=== PATIENT | male | born 1950 | race Caucasian/White ===

== ENCOUNTER 2021-11-09 22:03 | Inpatient (IN) ==
[2021-11-09] MEDS ORDERED: Amiodarone Premix 150 MG/100 ML BAG IVPB ONE (22:17)
[2021-11-09] MEDS ORDERED: Amiodarone Premix 360 MG/200 ML BAG IVC ONE (22:21)
[2021-11-09 22:34] LABS: Basophils # 0.1 K/mcL (0.0-0.2); Basophils % 0.7 %; Eosinophils # 0.5 K/mcL (0.0-0.6); Eosinophils % 3.4 %; Hematocrit 52.6 % (37.5-50.1); Hemoglobin 17.6 g/dL (12.9-16.9); Immature Granulocytes % 0.9 % (0-4); Lymphocytes # 2.3 K/mcL (0.6-4.6); Lymphocytes % 16.4 %; Mean Corpuscular HGB Conc 33.5 g/dL (31.6-35.5); Mean Corpuscular Hemoglobin 29.7 pg (28.0-33.3); Mean Corpuscular Volume 88.7 fL (83.0-100.0); Mean Platelet Volume 11.2 fL (9.4-12.4); Monocytes % 6.8 %; Neutrophils # 10.1 K/mcL (1.6-8.9); Platelet Count 210 K/mcL (140-400); Red Blood Count 5.93 M/mcL (4.19-5.50); Red Cell Distribution Width 14.5 % (11.5-14.5); Segmented Neutrophils % 71.8 %; White Blood Count 14.1 K/mcL (4.3-11.1)
[2021-11-09] MEDS ORDERED: *HR* Ticagrelor 90 MG TABLET PO ONE (22:37)
[2021-11-09] MEDS ORDERED: *HR* Heparin 5,000 UNIT/ML VIAL IVP PRN ×2 (22:37)
[2021-11-09] MEDS ORDERED: *HR* Heparin 5,000 UNIT/ML VIAL IVP ONE (22:37)
[2021-11-09] MEDS ORDERED: Aspirin 325 MG TABLET PO ONE (22:37)
[2021-11-09] MEDS ORDERED: *HR* FentaNYL (PF) 100 MCG/2 ML VIAL IVP ONE (22:37)
[2021-11-09 22:42] LABS: INR 2.5; Prothrombin Time 27.7 Seconds (9.4-12.1)
[2021-11-09 22:45] LABS: Activated Partial Thrombo Time 48.7 Seconds (26.0-36.0)
[2021-11-09] MEDS ORDERED: Heparin 25,000UNIT/250ML 1/2NS 25,000 UNIT/250 ML IV.SOLN IVC SCH (22:45)
[2021-11-09 22:53] LABS: Heparin anti-factor XA UFH < 0.04 IU/mL (0.30-0.70)
[2021-11-09] MEDS ORDERED: 0.9 % Sodium Chloride 1,000 ML ONE ×2 (22:53→22:59)
[2021-11-09] MEDS ORDERED: *HR* Heparin 10,000 UNIT/10 ML VIAL ONE (22:53)
[2021-11-09] MEDS ORDERED: Heparin 1,000 UNITS/500 mL 500 ML ONE (22:53)
[2021-11-09] MEDS ORDERED: ISOVUE-370 200 ML INFUS..BTL ONE (22:53)
[2021-11-09 22:55] LABS: Calcium 9.3 mg/dL (8.6-10.3); Magnesium 2.1 mg/dL (1.6-2.6); Potassium 4.4 mEq/L (3.5-5.1)
[2021-11-09] MEDS ORDERED: *HR* FentaNYL (PF) 100 MCG/2 ML VIAL ONE (22:59)
[2021-11-09] MEDS ORDERED: *HR* Midazolam HCl 2 MG/2 ML VIAL ONE (22:59)
[2021-11-09 23:03] LABS: Troponin I 0.89 ng/mL (< 0.04)
[2021-11-09] MEDS ORDERED: Nitroglycerin 1,000 MCG/5 ML VIAL IV ONE (23:08)
[2021-11-09 23:11] LABS: Thyroid Stimulating Hormone 3.638 mcIU/mL (0.340-5.600)
[2021-11-09] MEDS ORDERED: Tirofiban 12.5 MG/250ML 12.5 MG/250 ML BAG ONE (23:15)
[2021-11-10] MEDS ORDERED: ISOVUE-370 200 ML INFUS..BTL ONE (01:37)
[2021-11-10] MEDS ORDERED: Furosemide 40 MG/4 ML VIAL ONE (01:56)
[2021-11-10] MEDS ORDERED: Amiodarone Premix 360 MG/200 ML BAG IVC ONE ×2 (02:57→02:58)
[2021-11-10 03:47] LABS: Basophils # 0.1 K/mcL (0.0-0.2); Basophils % 0.5 %; Eosinophils # 0.2 K/mcL (0.0-0.6); Eosinophils % 1.4 %; Hematocrit 52.3 % (37.5-50.1); Hemoglobin 17.8 g/dL (12.9-16.9); Immature Granulocytes % 0.7 % (0-4); Lymphocytes % 14.7 %; Mean Corpuscular Hemoglobin 29.5 pg (28.0-33.3); Mean Corpuscular Volume 86.7 fL (83.0-100.0); Mean Platelet Volume 10.9 fL (9.4-12.4); Monocytes # 1.3 K/mcL (0.0-1.3); Monocytes % 9.7 %; Platelet Count 176 K/mcL (140-400); Red Blood Count 6.03 M/mcL (4.19-5.50); Red Cell Distribution Width 14.8 % (11.5-14.5); White Blood Count 13.6 K/mcL (4.3-11.1)
[2021-11-10 04:09] LABS: Calcium 8.9 mg/dL (8.6-10.3); Magnesium 2.2 mg/dL (1.6-2.6); Potassium 4.7 mEq/L (3.5-5.1)
[2021-11-10] MEDS: Amiodarone Premix 360 MG/200 ML BAG IVC SCH ×2 (06:30→15:13)
[2021-11-10 10:07] LABS: INR 2.3; Prothrombin Time 25.3 Seconds (9.4-12.1)
[2021-11-10] MEDS: carvediloL 6.25 MG TABLET PO SCH ×2 (13:33→19:01)
[2021-11-10] MEDS: *HR* Digoxin 0.125 MG TABLET PO SCH (13:34)
[2021-11-10] MEDS: *HR* LORazepam 0.5 MG TABLET PO PRN (13:34)
[2021-11-10] MEDS ORDERED: Perflutren Lipid Microsphere 1.3 ML in 0.9 % Sodium Chloride 8.7 ML IVP PRN (14:20)
[2021-11-10] MEDS ORDERED: *HR* Atropine Sulfate 1 MG/10 ML SYRINGE ONE (17:28)
[2021-11-10] MEDS: *HR* Heparin 5,000 UNIT/ML VIAL SQ SCH (22:06)
[2021-11-11] MEDS: Amiodarone Premix 360 MG/200 ML BAG IVC SCH ×2 (03:19→14:49)
[2021-11-11] MEDS: *HR* Heparin 5,000 UNIT/ML VIAL SQ SCH ×3 (06:08→20:51)
[2021-11-11] MEDS: carvediloL 6.25 MG TABLET PO SCH ×2 (08:46→17:14)
[2021-11-11] MEDS: *HR* Digoxin 0.125 MG TABLET PO SCH (08:47)
[2021-11-11 09:03] LABS: Lymphocytes % 18.8 %
[2021-11-11 09:05] LABS: Basophils # 0.1 K/mcL (0.0-0.2); Basophils % 0.6 %; Eosinophils # 0.1 K/mcL (0.0-0.6); Eosinophils % 1.1 %; Hematocrit 50.7 % (37.5-50.1); Immature Granulocytes % 0.7 % (0-4); Immature Platelets 4.3 % (1.1-6.1); Lymphocytes # 1.7 K/mcL (0.6-4.6); Mean Corpuscular HGB Conc 33.5 g/dL (31.6-35.5); Mean Corpuscular Hemoglobin 29.5 pg (28.0-33.3); Mean Platelet Volume 11.1 fL (9.4-12.4); Monocytes % 11.5 %; Neutrophils # 6.1 K/mcL (1.6-8.9); Platelet Count 137 K/mcL (140-400); Red Blood Count 5.76 M/mcL (4.19-5.50); Red Cell Distribution Width 14.6 % (11.5-14.5); Segmented Neutrophils % 67.3 %
[2021-11-11 09:11] LABS: INR 1.9; Prothrombin Time 20.8 Seconds (9.4-12.1)
[2021-11-11 09:18] LABS: Calcium 8.9 mg/dL (8.6-10.3); Magnesium 2.1 mg/dL (1.6-2.6); Phosphorous 2.5 mg/dL (2.7-4.5); Potassium 3.9 mEq/L (3.5-5.1)
[2021-11-11] MEDS: Ranolazine 500 MG TAB.ER.12H PO SCH (20:51)
[2021-11-12] MEDS: Amiodarone Premix 360 MG/200 ML BAG IVC SCH ×2 (01:02→13:21)
[2021-11-12 03:16] LABS: Hematocrit 48.6 % (37.5-50.1); Hemoglobin 15.9 g/dL (12.9-16.9); Mean Corpuscular HGB Conc 32.7 g/dL (31.6-35.5); Mean Corpuscular Hemoglobin 28.8 pg (28.0-33.3); Platelet Count 143 K/mcL (140-400); Red Blood Count 5.52 M/mcL (4.19-5.50); Red Cell Distribution Width 14.4 % (11.5-14.5); White Blood Count 10.2 K/mcL (4.3-11.1)
[2021-11-12 03:27] LABS: INR 1.7; Prothrombin Time 18.4 Seconds (9.4-12.1)
[2021-11-12 03:31] LABS: Albumin 3.9 g/dL (3.5-5.7); Albumin/Globulin Ratio 1.5 (1.1-2.2); Bilirubin,Total 1.3 mg/dL (0.3-1.0); Calcium 8.7 mg/dL (8.6-10.3); Globulin 2.6 g/dL (2.4-3.5); Potassium 3.7 mEq/L (3.5-5.1); Total Protein 6.5 g/dL (6.4-8.9)
[2021-11-12] MEDS: *HR* Heparin 5,000 UNIT/ML VIAL SQ SCH ×3 (05:56→21:43)
[2021-11-12] MEDS: *HR* Digoxin 0.125 MG TABLET PO SCH (08:07)
[2021-11-12] MEDS: carvediloL 6.25 MG TABLET PO SCH ×3 (08:07→18:10)
[2021-11-12] MEDS: Ranolazine 500 MG TAB.ER.12H PO SCH ×2 (08:07→21:54)
[2021-11-12] MEDS: *HR* LORazepam 0.5 MG TABLET PO PRN (08:08)
[2021-11-12] MEDS ORDERED: Aspirin Enteric Coated 81 MG Tablet PO SCH (09:00)
[2021-11-12] MEDS ORDERED: *HR* FentaNYL (PF) 100 MCG/2 ML VIAL ONE (11:18)
[2021-11-12] MEDS ORDERED: 0.9 % Sodium Chloride 1,000 ML ONE (11:19)
[2021-11-12] MEDS ORDERED: *HR* Midazolam HCl 2 MG/2 ML VIAL ONE ×2 (11:19→11:57)
[2021-11-12] MEDS ORDERED: 0.9 % Sodium Chloride 500 ML ONE ×2 (11:19→19:53)
[2021-11-12] MEDS ORDERED: carvediloL 6.25 MG TABLET PO SCH ×4 (17:00)
[2021-11-12] MEDS ORDERED: *HR* Metoprolol 5 MG/5 ML VIAL IVP ONE ×6 (18:04→19:07)
[2021-11-12] MEDS ORDERED: Amiodarone Premix 150 MG/100 ML BAG IVPB ONE ×2 (18:38→18:39)
[2021-11-12] MEDS ORDERED: carvediloL 6.25 MG TABLET PO STA (19:24)
[2021-11-12 20:36] LABS: Basophils # 0.1 K/mcL (0.0-0.2); Basophils % 0.5 %; Eosinophils # 0.3 K/mcL (0.0-0.6); Eosinophils % 2.4 %; Hematocrit 47.3 % (37.5-50.1); Hemoglobin 15.9 g/dL (12.9-16.9); Immature Granulocytes % 0.8 % (0-4); Lymphocytes # 1.7 K/mcL (0.6-4.6); Lymphocytes % 15.2 %; Mean Corpuscular HGB Conc 33.6 g/dL (31.6-35.5); Mean Corpuscular Hemoglobin 29.6 pg (28.0-33.3); Mean Corpuscular Volume 88.1 fL (83.0-100.0); Mean Platelet Volume 10.8 fL (9.4-12.4); Monocytes # 1.3 K/mcL (0.0-1.3); Monocytes % 11.8 %; Neutrophils # 7.6 K/mcL (1.6-8.9); Platelet Count 138 K/mcL (140-400); Red Blood Count 5.37 M/mcL (4.19-5.50); Red Cell Distribution Width 14.5 % (11.5-14.5); Segmented Neutrophils % 69.3 %
[2021-11-12 20:57] LABS: Albumin 3.7 g/dL (3.5-5.7); Albumin/Globulin Ratio 1.4 (1.1-2.2); Bilirubin,Total 0.9 mg/dL (0.3-1.0); Calcium 8.5 mg/dL (8.6-10.3); Globulin 2.6 g/dL (2.4-3.5); Phosphorous 3.3 mg/dL (2.7-4.5); Potassium 3.8 mEq/L (3.5-5.1); Total Protein 6.3 g/dL (6.4-8.9)
[2021-11-12 21:37] LABS: VBG Ionized Calcium 1.15 mmol/L (1.15-1.35)
[2021-11-13] MEDS ORDERED: Amiodarone Premix 360 MG/200 ML BAG IVC SCH ×2 (03:27→15:15)
[2021-11-13 03:56] LABS: VBG Ionized Calcium 1.17 mmol/L (1.15-1.35)
[2021-11-13 03:59] LABS: Basophils % 0.3 %; Eosinophils # 0.2 K/mcL (0.0-0.6); Eosinophils % 2.1 %; Hemoglobin 15.1 g/dL (12.9-16.9); Immature Granulocytes % 0.6 % (0-4); Lymphocytes # 1.6 K/mcL (0.6-4.6); Lymphocytes % 15.5 %; Mean Corpuscular HGB Conc 32.8 g/dL (31.6-35.5); Mean Corpuscular Hemoglobin 29.1 pg (28.0-33.3); Mean Corpuscular Volume 88.6 fL (83.0-100.0); Mean Platelet Volume 10.5 fL (9.4-12.4); Monocytes # 1.2 K/mcL (0.0-1.3); Monocytes % 11.4 %; Neutrophils # 7.2 K/mcL (1.6-8.9); Platelet Count 131 K/mcL (140-400); Red Blood Count 5.19 M/mcL (4.19-5.50); Red Cell Distribution Width 14.4 % (11.5-14.5); Segmented Neutrophils % 70.1 %; White Blood Count 10.2 K/mcL (4.3-11.1)
[2021-11-13 04:15] LABS: Albumin 3.7 g/dL (3.5-5.7); Albumin/Globulin Ratio 1.4 (1.1-2.2); Bilirubin,Total 1.2 mg/dL (0.3-1.0); Calcium 8.8 mg/dL (8.6-10.3); Globulin 2.7 g/dL (2.4-3.5); Potassium 4.1 mEq/L (3.5-5.1); Total Protein 6.4 g/dL (6.4-8.9)
[2021-11-13] MEDS: *HR* Heparin 5,000 UNIT/ML VIAL SQ SCH ×3 (05:31→21:00)
[2021-11-13] MEDS: Ranolazine 500 MG TAB.ER.12H PO SCH ×2 (09:44→20:07)
[2021-11-13] MEDS: *HR* Digoxin 0.125 MG TABLET PO SCH (09:44)
[2021-11-13] MEDS ORDERED: WATER IV ONE (14:00)
[2021-11-13] MEDS ORDERED: D5 IV ONE (14:00)
[2021-11-13] MEDS ORDERED: LIDOCAINE IV ONE (14:00)
[2021-11-13] MEDS ORDERED: Lidocaine 2% Syringe 100 MG/5 ML ONE (14:05)
[2021-11-13] MEDS ORDERED: Lidocaine Drip 2 GM/250 ML IV.SOLN IVC SCH (14:30)
[2021-11-13] MEDS ORDERED: Amiodarone Premix 150 MG/100 ML BAG IVPB ONE (14:53)
[2021-11-13] MEDS ORDERED: Lidocaine 2% Syringe 100 MG/5 ML IVP ONE (16:14)
[2021-11-13] MEDS ORDERED: D5% in Water 250 ML IV BAG IV ONE (16:14)
[2021-11-13] MEDS: carvediloL 6.25 MG TABLET PO SCH (18:48)
[2021-11-13] MEDS: Amiodarone Premix 360 MG/200 ML BAG IVC SCH (21:01)
[2021-11-14 04:30] LABS: VBG Ionized Calcium 1.07 mmol/L (1.15-1.35)
[2021-11-14 04:42] LABS: Albumin 3.6 g/dL (3.5-5.7); Albumin/Globulin Ratio 1.3 (1.1-2.2); Calcium 8.7 mg/dL (8.6-10.3); Globulin 2.8 g/dL (2.4-3.5); Magnesium 1.9 mg/dL (1.6-2.6); Phosphorous 3.4 mg/dL (2.7-4.5); Potassium 4.1 mEq/L (3.5-5.1); Total Protein 6.4 g/dL (6.4-8.9)
[2021-11-14 04:46] LABS: Basophils # 0.1 K/mcL (0.0-0.2); Basophils % 0.5 %; Eosinophils # 0.3 K/mcL (0.0-0.6); Eosinophils % 3.5 %; Hematocrit 47.9 % (37.5-50.1); Hemoglobin 16.2 g/dL (12.9-16.9); Immature Granulocytes % 0.8 % (0-4); Immature Platelets 6.4 % (1.1-6.1); Lymphocytes # 1.6 K/mcL (0.6-4.6); Lymphocytes % 17.7 %; Mean Corpuscular HGB Conc 33.8 g/dL (31.6-35.5); Mean Corpuscular Hemoglobin 29.6 pg (28.0-33.3); Mean Corpuscular Volume 87.6 fL (83.0-100.0); Mean Platelet Volume 11.5 fL (9.4-12.4); Monocytes # 1.2 K/mcL (0.0-1.3); Neutrophils # 5.9 K/mcL (1.6-8.9); Platelet Count 130 K/mcL (140-400); Red Blood Count 5.47 M/mcL (4.19-5.50); Red Cell Distribution Width 14.6 % (11.5-14.5); Segmented Neutrophils % 64.5 %; White Blood Count 9.2 K/mcL (4.3-11.1)
[2021-11-14] MEDS: *HR* Heparin 5,000 UNIT/ML VIAL SQ SCH ×3 (05:17→21:06)
[2021-11-14] MEDS ORDERED: Calcium Gluconate 1gm/50mL 1 GM/50 ML BAG IVPB PRN ×2 (06:30→15:35)
[2021-11-14 07:14] LABS: Basophils # 0.1 K/mcL (0.0-0.2); Basophils % 0.5 %; Eosinophils # 0.3 K/mcL (0.0-0.6); Eosinophils % 2.5 %; Hematocrit 47.7 % (37.5-50.1); Hemoglobin 15.7 g/dL (12.9-16.9); Immature Granulocytes % 1.1 % (0-4); Lymphocytes # 1.4 K/mcL (0.6-4.6); Lymphocytes % 13.7 %; Mean Corpuscular HGB Conc 32.9 g/dL (31.6-35.5); Mean Corpuscular Volume 88.2 fL (83.0-100.0); Mean Platelet Volume 10.7 fL (9.4-12.4); Monocytes # 1.3 K/mcL (0.0-1.3); Monocytes % 12.5 %; Neutrophils # 7.1 K/mcL (1.6-8.9); Platelet Count 139 K/mcL (140-400); Red Blood Count 5.41 M/mcL (4.19-5.50); Red Cell Distribution Width 14.6 % (11.5-14.5); Segmented Neutrophils % 69.7 %; White Blood Count 10.2 K/mcL (4.3-11.1)
[2021-11-14] MEDS: carvediloL 6.25 MG TABLET PO SCH (07:29)
[2021-11-14] MEDS: Ranolazine 500 MG TAB.ER.12H PO SCH ×2 (07:29→20:01)
[2021-11-14] MEDS: *HR* Digoxin 0.125 MG TABLET PO SCH (07:29)
[2021-11-14 07:34] LABS: Calcium 8.7 mg/dL (8.6-10.3); Potassium 4.3 mEq/L (3.5-5.1)
[2021-11-14] MEDS ORDERED: Aspirin Enteric Coated 81 MG Tablet PO SCH (09:00)
[2021-11-14] MEDS: Amiodarone Premix 360 MG/200 ML BAG IVC SCH ×3 (10:47→22:08)
[2021-11-14] MEDS ORDERED: *HR* Amiodarone 200 MG TABLET PO SCH (15:00)
[2021-11-14] MEDS ORDERED: *HR* LORazepam 0.5 MG TABLET PO PRN (15:35)
[2021-11-14] MEDS: Metoprolol XL (24 HR) Succ 25 MG TAB.ER.24H PO SCH (20:00)
[2021-11-14] MEDS: *HR* Amiodarone 200 MG TABLET PO SCH (20:01)
[2021-11-14] MEDS ORDERED: Metoprolol XL (24 HR) Succ 25 MG TAB.ER.24H PO SCH (21:00)
[2021-11-15] MEDS ORDERED: predniSONE 20 MG TABLET PO STA (03:37)
[2021-11-15] MEDS: *HR* Heparin 5,000 UNIT/ML VIAL SQ SCH ×3 (05:29→20:27)
[2021-11-15 07:11] LABS: Basophils # 0.1 K/mcL (0.0-0.2); Basophils % 0.6 %; Eosinophils # 0.2 K/mcL (0.0-0.6); Eosinophils % 1.8 %; Hematocrit 46.4 % (37.5-50.1); Hemoglobin 15.3 g/dL (12.9-16.9); Immature Granulocytes % 0.8 % (0-4); Lymphocytes # 1.4 K/mcL (0.6-4.6); Lymphocytes % 13.2 %; Mean Corpuscular Hemoglobin 28.9 pg (28.0-33.3); Mean Corpuscular Volume 87.7 fL (83.0-100.0); Monocytes # 1.3 K/mcL (0.0-1.3); Monocytes % 11.8 %; Neutrophils # 7.7 K/mcL (1.6-8.9); Platelet Count 148 K/mcL (140-400); Red Blood Count 5.29 M/mcL (4.19-5.50); Red Cell Distribution Width 14.6 % (11.5-14.5); Segmented Neutrophils % 71.8 %; White Blood Count 10.7 K/mcL (4.3-11.1)
[2021-11-15 07:31] LABS: Calcium 8.7 mg/dL (8.6-10.3); Potassium 4.5 mEq/L (3.5-5.1)
[2021-11-15] MEDS: Aspirin Enteric Coated 81 MG Tablet PO SCH (08:32)
[2021-11-15] MEDS: Ranolazine 500 MG TAB.ER.12H PO SCH ×2 (08:33→20:27)
[2021-11-15] MEDS: *HR* Amiodarone 200 MG TABLET PO SCH ×3 (08:33→20:26)
[2021-11-15] MEDS: Metoprolol XL (24 HR) Succ 25 MG TAB.ER.24H PO SCH ×2 (08:37→20:27)
[2021-11-16] MEDS: *HR* Heparin 5,000 UNIT/ML VIAL SQ SCH ×2 (06:48→13:32)
[2021-11-16] MEDS: Aspirin Enteric Coated 81 MG Tablet PO SCH (07:44)
[2021-11-16] MEDS: *HR* Amiodarone 200 MG TABLET PO SCH ×2 (07:44→13:54)
[2021-11-16] MEDS: Metoprolol XL (24 HR) Succ 25 MG TAB.ER.24H PO SCH (07:44)
[2021-11-16] MEDS: Ranolazine 500 MG TAB.ER.12H PO SCH (07:45)
[2021-11-16 07:53] LABS: Potassium 4.1 mEq/L (3.5-5.1)
[2021-11-16] MEDS ORDERED: lisinopriL 5 MG TABLET PO SCH (09:00)
[2021-11-16 11:04] VITALS: BP 137/79; TEMP 97.7
[2021-11-16 15:59] VITALS: PULSE 57; O2SAT 98
[2021-11-16] MEDS ORDERED: *HR* Amiodarone 200 MG TABLET PO SCH ×2 (21:00)
== END 2021-11-16 16:15 | disposition home or self-care (01) | DRG 222 ==
LOC: ICNU 22:03 → EMEROOARM 22:03 → ICNU 11-10 01:05 → EMEROOARM 11-10 01:10 → 2NNU 11-10 15:09 → ICNU 11-12 20:45 → 2NNU 11-16 05:26
PROVIDERS: ADMIT Internal Medicine Cardiovascular Disease; ATTEND Student in an Organized Health Care Education/Training Program

== ENCOUNTER 2022-03-30 17:37 | Inpatient (IN) ==
[2022-03-30] MEDS ORDERED: Cefepime HCl 2,000 MG in 0.9 % Sodium Chloride 10 ML IVP ONE (18:11)
[2022-03-30 18:33] LABS: Basophils % 0.3 %; Eosinophils # 0.1 K/mcL (0.0-0.6); Eosinophils % 0.5 %; Hematocrit 50.5 % (37.5-50.1); Hemoglobin 16.3 g/dL (12.9-16.9); Immature Granulocytes % 0.4 % (0-4); Lymphocytes % 9.8 %; Mean Corpuscular HGB Conc 32.3 g/dL (31.6-35.5); Mean Corpuscular Hemoglobin 28.3 pg (28.0-33.3); Mean Corpuscular Volume 87.8 fL (83.0-100.0); Mean Platelet Volume 10.7 fL (9.4-12.4); Monocytes # 1.4 K/mcL (0.0-1.3); Monocytes % 13.7 %; Neutrophils # 7.7 K/mcL (1.6-8.9); Platelet Count 112 K/mcL (140-400); Red Blood Count 5.75 M/mcL (4.19-5.50); Segmented Neutrophils % 75.3 %; White Blood Count 10.3 K/mcL (4.3-11.1)
[2022-03-30 19:00] LABS: Calcium 9.4 mg/dL (8.6-10.3); Potassium 4.1 mEq/L (3.5-5.1)
[2022-03-30 19:05] LABS: INR 2.1; Prothrombin Time 23.8 Seconds (9.4-12.1)
[2022-03-30] MEDS ORDERED: Nitroglycerin 0.4 MG TAB.SUBL SL PRN (20:27)
[2022-03-30] MEDS ORDERED: Ondansetron 4 MG/2 ML VIAL IVP PRN (20:31)
[2022-03-30] MEDS ORDERED: Naloxone 0.4 MG/ML INJ IVP PRN (20:31)
[2022-03-30] MEDS ORDERED: Acetaminophen 325 MG TABLET PO PRN (20:31)
[2022-03-30] MEDS ORDERED: *HR* Warfarin 2.5 MG TABLET PO ONE (20:45)
[2022-03-30] MEDS ORDERED: Niacin (24 HR) 500 MG TAB.ER.24H PO SCH (21:00)
[2022-03-30] MEDS: Ranolazine 500 MG TAB.ER.12H PO SCH (21:26)
[2022-03-30] MEDS: *HR* Amiodarone 200 MG TABLET PO SCH (21:26)
[2022-03-30] MEDS: Metoprolol XL (24 HR) Succ 25 MG TAB.ER.24H PO SCH (21:26)
[2022-03-30 23:42] LABS: Bacteria,Urine Few per hpf (None-Few); Bilirubin,Urine Negative (Negative); Blood,Urine Large (Negative); Clarity,Urine Turbid (Clear); Color,Urine Yellow (Yellow); Glucose,Urine (UA) Normal (Normal); Ketones,Urine Negative (Negative); Leukocyte Esterase,Urine Large (Negative); Mucus,Urine Few per lpf (None-Few); Nitrite,Urine Negative (Negative); PH,Urine 5.5 pH Units (5.0-8.0); Protein,Urine 50 mg/dL (Neg-Trace); RBC,Urine 30-50 per hpf (0-3); Specific Gravity,Urine 1.018 (1.010-1.025); Squamous Epithelial Cell,Urine Few per hpf (None-Few); Urobilinogen,Urine Normal (Normal); WBC,Urine 50-100 per hpf (0-3)
[2022-03-31] MEDS ORDERED: Cefepime HCl 2,000 MG in 0.9 % Sodium Chloride Mini Bag 100 ML IVPB SCH (02:00)
[2022-03-31 04:45] LABS: Red Cell Distribution Width 15.9 % (11.5-14.5)
[2022-03-31 04:47] LABS: Hematocrit 45.9 % (37.5-50.1); Hemoglobin 14.9 g/dL (12.9-16.9); Immature Platelets 6.4 % (1.1-6.1); Mean Corpuscular HGB Conc 32.5 g/dL (31.6-35.5); Mean Corpuscular Hemoglobin 28.5 pg (28.0-33.3); Mean Corpuscular Volume 87.8 fL (83.0-100.0); Mean Platelet Volume 11.2 fL (9.4-12.4); Red Blood Count 5.23 M/mcL (4.19-5.50); White Blood Count 7.5 K/mcL (4.3-11.1)
[2022-03-31 04:51] LABS: INR 2.3; Prothrombin Time 25.8 Seconds (9.4-12.1)
[2022-03-31 05:04] LABS: Calcium 8.8 mg/dL (8.6-10.3); Chol/HDL Ratio 3.6 (0-4.9); Magnesium 2.2 mg/dL (1.6-2.6); Potassium 3.9 mEq/L (3.5-5.1)
[2022-03-31] MEDS: *HR* Amiodarone 200 MG TABLET PO SCH ×2 (08:29→21:10)
[2022-03-31] MEDS: Niacin (24 HR) 500 MG TAB.ER.24H PO SCH (08:29)
[2022-03-31] MEDS: Metoprolol XL (24 HR) Succ 25 MG TAB.ER.24H PO SCH ×2 (08:29→21:11)
[2022-03-31] MEDS: Ranolazine 500 MG TAB.ER.12H PO SCH ×2 (08:29→21:01)
[2022-03-31] MEDS: lisinopriL 5 MG TABLET PO SCH (08:29)
[2022-03-31] MEDS: Cefepime HCl 2,000 MG in 0.9 % Sodium Chloride Mini Bag 100 ML IVPB SCH ×2 (08:30→17:52)
[2022-03-31] MEDS ORDERED: *HR* Warfarin 2.5 MG TABLET PO ONE (18:00)
[2022-03-31] MEDS ORDERED: Warfarin perPT PO PRN (18:00)
[2022-04-01] MEDS: Cefepime HCl 2,000 MG in 0.9 % Sodium Chloride Mini Bag 100 ML IVPB SCH (05:23)
[2022-04-01 05:40] LABS: Eosinophils % 1.6 %; Hematocrit 45.2 % (37.5-50.1)
[2022-04-01 05:42] LABS: Basophils % 0.7 %; Eosinophils # 0.1 K/mcL (0.0-0.6); Hemoglobin 14.7 g/dL (12.9-16.9); Immature Granulocytes % 0.8 % (0-4); Immature Platelets 7.2 % (1.1-6.1); Lymphocytes # 1.3 K/mcL (0.6-4.6); Lymphocytes % 20.8 %; Mean Corpuscular HGB Conc 32.5 g/dL (31.6-35.5); Mean Corpuscular Hemoglobin 28.7 pg (28.0-33.3); Mean Corpuscular Volume 88.3 fL (83.0-100.0); Mean Platelet Volume 10.8 fL (9.4-12.4); Monocytes # 0.8 K/mcL (0.0-1.3); Monocytes % 12.7 %; Neutrophils # 3.9 K/mcL (1.6-8.9); Platelet Count 120 K/mcL (140-400); Red Blood Count 5.12 M/mcL (4.19-5.50); Red Cell Distribution Width 15.8 % (11.5-14.5); Segmented Neutrophils % 63.4 %; White Blood Count 6.1 K/mcL (4.3-11.1)
[2022-04-01 05:52] LABS: INR 2.8; Prothrombin Time 31.2 Seconds (9.4-12.1)
[2022-04-01 05:57] LABS: Calcium 8.8 mg/dL (8.6-10.3); Potassium 4.2 mEq/L (3.5-5.1)
[2022-04-01 07:48] VITALS: O2SAT 97
[2022-04-01] MEDS: *HR* Amiodarone 200 MG TABLET PO SCH (08:20)
[2022-04-01] MEDS: lisinopriL 5 MG TABLET PO SCH (08:20)
[2022-04-01] MEDS: Ranolazine 500 MG TAB.ER.12H PO SCH (08:20)
[2022-04-01] MEDS: Metoprolol XL (24 HR) Succ 25 MG TAB.ER.24H PO SCH (08:21)
[2022-04-01] MEDS: Niacin (24 HR) 500 MG TAB.ER.24H PO SCH (08:21)
[2022-04-01] MEDS ORDERED: Ertapenem 1,000 MG in 0.9 % Sodium Chloride Mini Bag 100 ML IVPB SCH (10:00)
[2022-04-01 14:51] VITALS: BP 149/79; PULSE 58; TEMP 97.8
[2022-04-01] MEDS ORDERED: Flu Vac QV 22-23 (6MOS UP)/PF 0.5 ML SYRINGE IM ONE (17:08)
[2022-04-01] MEDS ORDERED: *HR* Warfarin 1 MG TABLET PO ONE (18:00)
== END 2022-04-01 17:42 | disposition home or self-care (01) | DRG 690 ==
LOC: 3ANU 17:37 → EMEROOARM 17:37 → 3ANU 19:51
PROVIDERS: ADMIT Internal Medicine; ATTEND Internal Medicine